=== PATIENT | female | born 1965 | race Caucasian/White ===

== ENCOUNTER 2018-05-04 18:57 | Emergency (ER) | payer SELFPAY ==
[~2018-05-04] VITALS: Ht 165.1 cm; Wt 76.7 kg
[2018-05-04 19:08] VITALS: Ht 165.1 cm; Wt 76.7 kg
[2018-05-04 20:29] VITALS: BP 126/83
== END 2018-05-04 20:29 | disposition home or self-care (01) ==
LOC: ED 18:57
DX: G44.209 Tension-type headache, unspecified, not intractable (principal); Z90.710 Acquired absence of both cervix and uterus
CPT/HCPCS: J0780; Q0162